=== PATIENT | female | born 1995 | race Caucasian/White ===

== ENCOUNTER 2016-04-10 10:39 | Emergency (ER) | payer SELFPAY ==
--- NOTE | 2016-04-10 10:59 | ER Document Report ---
ED Medical Screen (RME) - General Stated Complaint: FLANK PAIN Notes: 20 yo female c/o right flank pain x 2-3 days. not radiating. + dysuria. low grade fever. + hx/o UTI, pyleonephritis TRAVEL OUTSIDE OF THE [place] IN LAST 30 DAYS: No - Related Data Allergies/Adverse Reactions: No Known Allergies Allergy (Verified 02/12/16 14:04) Physical Exam - Vital signs Vitals: Temp Pulse Resp BP Pulse Ox 99.1 F 109 H 16 119/59 L 99 04/10/16 10:53 04/10/16 10:53 04/10/16 10:53 04/10/16 10:53 04/10/16 10:53 Course - Vital Signs Vital signs: Temp Pulse Resp BP Pulse Ox 99.1 F 109 H 16 119/59 L 99 04/10/16 10:53 04/10/16 10:53 04/10/16 10:53 04/10/16 10:53 04/10/16 10:53
[2016-04-10 11:51] LABS: ALANINE AMINOTRANSFERASE 26 U/L (9-52); ALBUMIN 4.9 g/dL (3.5-5.0); ALKALINE PHOSPHATASE 83 U/L (38-126); ANION GAP 14 (5-19); ASPARTATE AMINO TRANSFERASE 25 U/L (14-36); BILIRUBIN,TOTAL 0.9 mg/dL (0.2-1.3); BLOOD UREA NITROGEN 11 mg/dL (7-20); CALCIUM 9.7 mg/dL (8.4-10.2); CARBON DIOXIDE 24 mmol/L (22-30); CHLORIDE 100 mmol/L (98-107); CREATININE RESULT 0.69 mg/dL (0.52-1.25); GLUCOSE 122 mg/dL (75-110); POTASSIUM 4.2 mmol/L (3.6-5.0); SODIUM 137.5 mmol/L (137-145); TOTAL PROTEIN 8.2 g/dL (6.3-8.2)
[2016-04-10] MEDS ORDERED: ACETAMINOPHEN 325 MG TABLET PO ONE (13:04)
--- NOTE | 2016-04-10 13:07 | ER Document Report ---
ED General - General Chief Complaint: Flank Pain Stated Complaint: FLANK PAIN Mode of Arrival: Ambulatory Information source: Patient Notes: Patient presents to the emergency department with complaints of right flank pain and burning with void. Patient reports symptoms for the past 3-4 days. She reports reports this morning. She denies fever vomiting diarrhea but reports some nausea. She reports she had the same symptoms a few months ago. She denies trauma. Denies history of renal disease. TRAVEL OUTSIDE OF THE [place] IN LAST 30 DAYS: No - HPI Onset: Other - 3-4 days Onset/Duration: Persistent Quality of pain: Burning Severity: Severe Pain Level: 4 Associated symptoms: Nausea Exacerbated by: Denies Relieved by: Denies Similar symptoms previously: Yes Recently seen / treated by doctor: No - Related Data Allergies/Adverse Reactions: No Known Allergies Allergy (Verified 04/10/16 10:57) Past Medical History - General Information source: Patient Last Menstrual Period: nexplanon - Social History Smoking Status: Current Every Day Smoker Cigarette use (# per day): Yes - 1 ppw Chew tobacco use (# tins/day): No Frequency of alcohol use: Occasional Drug Abuse: None Occupation: [employer] Family History: Reviewed & Not Pertinent Patient has suicidal ideation: No Patient has homicidal ideation: No - Medical History Medical History: Negative Renal/ Medical History: Denies: Hx Peritoneal Dialysis Surgical Hx: Negative Review of Systems - Review of Systems Notes: Review HPI for review of systems., All other systems negative Physical Exam - Vital signs Vitals: Temp Pulse Resp BP Pulse Ox 99.1 F 109 H 16 119/59 L 99 04/10/16 10:53 04/10/16 10:53 04/10/16 10:53 04/10/16 10:53 04/10/16 10:53 - Notes Notes: PHYSICAL EXAMINATION: GENERAL: Well-appearing and in no acute distress nontoxic looking HEAD: Atraumatic, normocephalic. EYES: Pupils equal round extraocular movements intact, sclera anicteric, conjunctiva are normal. ENT: nares patent, . Moist mucous membranes. NECK: Normal range of motion, supple without lymphadenopathy LUNGS: CTAB and equal. No wheezes rales or rhonchi. HEART: Regular rate and rhythm without murmurs ABDOMEN: Soft, no tenderness. No guarding, no rebound BACK: C/O Right flank pain EXTREMITIES: Normal range of motion, no pitting edema. No cyanosis. NEUROLOGICAL: Cranial nerves grossly intact. Normal sensory/motor PSYCH: Normal mood, normal affect. SKIN: Warm, Dry, normal turgor, no rashes or lesions noted Course - Re-evaluation Re-evalutation: 04/10/16 13:06 Patient instructed waiting for urine. Patient also provided with Tylenol. Declines nausea medicine. 04/10/16 Positive nitrite. Patient was instructed on medication. She reports she's taken medication before without problems. She was instructed on the importance of pushing fluids and follow for recheck with one week. She verbalized understanding - Vital Signs Vital signs: Temp Pulse Resp BP Pulse Ox 98.7 F 109 H 16 110/59 L 98 04/10/16 15:07 04/10/16 15:07 04/10/16 15:07 04/10/16 15:07 04/10/16 15:07 - Laboratory Result Diagrams: 04/10/16 14:16 04/10/16 11:10 Laboratory results interpreted by me: 04/10/16 04/10/16 04/10/16 11:10 13:13 14:16 Hgb 11.9 L MCH 26.8 L Seg Neutrophils % 78.3 H Lymphocytes % 10.5 L Glucose 122 H Urine Protein 30 H Urine Ketones TRACE H Urine Blood SMALL H Urine Nitrite POSITIVE H Ur Leukocyte Esterase MODERATE H Discharge - Discharge Clinical Impression: Right flank pain, Dysuria UTI (urinary tract infection) Qualifiers: Urinary tract infection type: site unspecified Hematuria presence: with hematuria Qualified Code(s): N39.0 - Urinary tract infection, site not specified Condition: Stable Disposition: HOME, SELF-CARE Instructions: Trimethoprim-Sulfa ([facility]), Urinary Tract Infection ([facility]), Use of Mynw-Yht-Kfoikkt Ibuprofen ([facility]) Additional Instructions: *You have been evaluated for pain while voiding, UTI *Take medication as prescribed *Take motrin for pain as indicated *Push fluids *Follow up with your primary care provider *Plan urine recheck in one week *Return to ED for worsening condition, changes, needs Prescriptions: Sulfamethoxazole/Trimethoprim [Bactrim Ds Tablet] 1 each PO BID #10 tablet Forms: Return to Work
[2016-04-10 13:40] LABS: AMORPHOUS SEDIMENT,URINE TRACE /HPF; APPEARANCE,URINE SLIGHTLY-CLOUDY; BILIRUBIN,URINE NEGATIVE (NEGATIVE); GLUCOSE, URINE NEGATIVE (NEGATIVE); KETONES,URINE TRACE mg/dL (NEGATIVE); LEUKOCYTE ESTERASE,URINE MODERATE (NEGATIVE); NITRITE,URINE POSITIVE (NEGATIVE); PROTEIN,URINE 30 mg/dL (NEGATIVE); URINE SPECIFIC GRAVITY 1.013; UROBILINOGEN,URINE NEGATIVE mg/dL (<2.0)
[2016-04-10 14:29] LABS: HEMOGLOBIN 11.9 g/dL (12.0-15.5); HGB HCT DIFFERENCE -0.3; MEAN CORPUSCULAR VOLUME 81 fl (80-97); RED BLOOD COUNT 4.46 10^6/uL (3.72-5.28); WHITE BLOOD COUNT 7.8 10^3/uL (4.0-10.5)
[2016-04-10 14:30] LABS: ABSOLUTE LYMPHOCYTES (AUTO) 0.8 10^3/uL (0.5-4.7); ABSOLUTE MONOCYTES (AUTO) 0.9 10^3/uL (0.1-1.4); ABSOLUTE NEUT (AUTO) 6.1 10^3/uL (1.7-8.2); BASOPHILS % (AUTO) 0.2 % (0-2); EOSINOPHILS % (AUTO) 0.1 % (0-6); LYMPHOCYTES % (AUTO) 10.5 % (13-45); MEAN CORPUSCULAR HEMOGLOBIN 26.8 pg (27.0-33.4); MEAN CORPUSCULAR HGB CONC 33.2 g/dL (32.0-36.0); MONOCYTES % (AUTO) 10.9 % (3-13); SEGMENTED NEUTROPHILS % (AUTO) 78.3 % (42-78)
[2016-04-10 15:13] VITALS: BP 110/59
== END 2016-04-10 15:07 | disposition home or self-care (01) ==
LOC: ER 10:39
DX: N39.0 Urinary tract infection, site not specified (principal); R31.9 Hematuria, unspecified; R10.9 Unspecified abdominal pain; R30.0 Dysuria; R11.0 Nausea; F17.210 Nicotine dependence, cigarettes, uncomplicated
CPT/HCPCS: 36415; 80053; 81001; 84703; 85025; 99284